=== PATIENT | female | born 1975 | race Hispanic/Latino ===

== ENCOUNTER → 2021-04-29 | Outpatient (RCR) | payer BC, OTHER | END | disposition still patient (30) | LOC: OT 04-15 11:59 | PROVIDERS: ATTEND Orthopaedic Surgery | DX: M72.0 Palmar fascial fibromatosis [Dupuytren] (principal); E09.44 Drug or chemical induced diabetes mellitus with neurological complications with diabetic amyotrophy; Z74.09 Other reduced mobility; Z78.9 Other specified health status ==

== ENCOUNTER 2021-05-28 08:00 | Outpatient (RCR) | payer OTHER | END 2021-05-30 | LOC: PT 08:00 | PROVIDERS: ATTEND Physical Medicine & Rehabilitation | DX: M72.0 Palmar fascial fibromatosis [Dupuytren] (principal) ==

== ENCOUNTER → 2021-06-29 | Outpatient (RCR) | payer OTHER | LOC: OT 06-01 10:00 → PT 06-01 10:16 | PROVIDERS: ATTEND Physical Medicine & Rehabilitation | DX: M72.0 Palmar fascial fibromatosis [Dupuytren] (principal) ==

== ENCOUNTER 2021-07-27 13:00 | Outpatient (RCR) | payer OTHER | END 2021-07-30 | LOC: PT 13:00 | PROVIDERS: ATTEND Physical Medicine & Rehabilitation | DX: M72.0 Palmar fascial fibromatosis [Dupuytren] (principal); E11.44 Type 2 diabetes mellitus with diabetic amyotrophy | CPT/HCPCS: 97139 ==

== ENCOUNTER 2023-05-15 06:59 | Outpatient (RCR) | payer OTHER | END 2023-05-30 | LOC: PT 06:59 | PROVIDERS: ATTEND Family Medicine | DX: M25.461 Effusion, right knee (principal); M62.81 Muscle weakness (generalized); R26.2 Difficulty in walking, not elsewhere classified ==